=== PATIENT | female | born 1935 | race Caucasian/White ===

== ENCOUNTER 2016-08-29 11:06 | Day surgery (SDC) | payer MEDICARE ==
[2016-08-29] VITALS (9 sets, daily range): BP systolic 104–149; BP diastolic 56–80; PULSE 59–69; RESP 15–19; O2SAT 93–98
[~2016-08-29] VITALS: Ht 165.1 cm; Wt 69.8 kg
--- NOTE | 2016-08-29 06:41 | PCM.HPANE ---
Patient Data Surgeon Admitting Provider: Attending Provider:Emani Newman MD Primary Care Physician:Yoel Pabon MD Other Provider:[facility] Reason for Visit Bladder Tumor Ht/WT & BMI Height (Feet): 5 Height (Inches): 5 Weight (Kilograms): 25.96 Body Mass Index 9.00 Allergies Uncoded Allergies: CT CONTRAST (Allergy, Unknown, headache, nausea, anxiety, 08/26/16) pt tolerates topical iodines, shellfish with no reactions Past Anesthesia History Anesthesia History: Denies:: Abnormal Airway, Anesthesia Reactions (nausea after sedation- both times (colonoscopy, breast bx)), Difficult Intubation, Fam Anesthesia Reaction Diabetes History Hx Diabetes?: No MRSA MRSA: No Medications Hypertension Medication: Yes Home Meds Incl Beta Elizabeth: No Reported Medications Multivitamin (Multi Vitamin Daily)1 Each Tablet1 Each PO DAILY 30 Days Ref 0 08/29/16 Aspirin 81 Mg [id number] Mg PO DAILY Ref 0 08/29/16 [eye gtts] No Conflict CheckUnknown Dose DAILY for glaucoma 08/26/16 Simvastatin 10 Mg [id number] Mg PO HS Ref 0 08/26/16 Lisinopril 20 Mg [id number] Mg PO DAILY 30 Days Ref 0 08/26/16 History History of ENT Problems?: Yes HEENT History: Positive for:: Cataracts (bilateral ) Glaucoma Denies:: Abnormal Airway Difficult Intubation Dysphagia Hearing Problem Sinus Problem TMJ Denture Type: None Teeth Condition: Within Normal Limits Hx of Heart Problems?: No Cardiovascular History: Positive for:: Hypertension Denies:: AICD Abdominal Aortic Aneurism Atrial Fibrillation Cardiac Surgery Chest Pain Congestive Heart Failure Coronary Artery Disease Heart Murmur Irregular Heartbeat Pacemaker Peripheral Vascular Hx of Respiratory Problem?: Yes Respiratory History: Denies:: Asthma COPD Dyspnea Emphysema Oxygen Administration Pneumonia Tuberculosis Use of C-PAP Machine Use of Inhalers / NEBS Other Resp Pertinent History: right pulmonary nodule found on CT scan- being referred back to PCP for follow up Hx Neurologic Problems?: Yes Neurological History: Denies:: Alzheimer's Disease CVA Dementia Dizziness Headaches Multiple Sclerosis Parkinson's Disease (benign tremors- parkinsons ruled out-hands/legs tremors) Seizures TIA Hx of GI Problems?: No Hx of Problems?: Yes Genitourinary History: Denies:: Kidney Stones Urinary Tract Infection Other Pertinent History: bladder tumor current admission problem, 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 (hx of breast bx- benign ( right)) Denies:: Currently Skin History: Denies:: History Skin Disorders? Pressure Ulcers Hx Musculoskeletal Problems?: Yes Musculoskeletal History: Positive for:: Degenerative Joint Musculoskeletal Trauma (knee pain) Osteoarthritis Denies:: Back Injury Fibromyalgia Joint Replacement Myasthenia Gravis Systemic Lupus Hx of Psycho/Social Problems?: No Psycho Social History: Denies:: Anxiety (situational ) Hx Depression Hx Surgeries?: Yes (breast bx, judy cataracts) Hx Any Other Health Problems?: Yes Other History: Positive for:: Cancer (bladder) Denies:: Thyroid Disease History Blood Transfusions: Positive for:: Accept Blood Products? Denies:: Blood Transfusions Hx Diabetes: No Hx Alcohol Use: NoHx Substance Use: NoHave You Smoked inLast 12 mo: Yes ( quit June 2016) Stop/Bang S-Snoring: Do You Snore Loudly: No T-Tired: feel tired, fatigued: No O-Obsered: Observed not breath: No P-Blood Pressure: treated: Yes B- Body Mass Index > 35 kg/m2: No A- Age over 50: Yes N- Neck Large Circumference: No G- Gender Male: No OFELIA Total Score: 2 Risk Assessment Category Category 1A: Patient has history of documented sleep apnea, and HAS NOT received any narcotic, sedative or anesthesia administration during this stay. Category 1B: Patient has history of documented sleep apnea, and HAS received any narcotic , sedative or anesthesia administration during this stay Category 2: Patient has SUSPECTED Obstructive Sleep Apnea, and HAS received any narcotic , sedative or anesthesia administration during this stay. Category 3: Patient has SUSPECTED Obstructive Sleep Apnea and HAS NOT received narcotic, sedative or anesthesia administration during this stay. Category 4: Outpatient in Procedural Areas with known sleep apnea or who screen positive for High Risk via the STOP/BANG questionnaire. Exam Exam General Appearance: Alert, Oriented X3, Cooperative HEENT/AIRWAY: MP 2, Neck Movement (from), Mouth Opening (appeance of underbite , good opening) Lungs: Clear to Auscultation Heart: Exam Unremarkable Plan Impression Patient chart reviewed, patient interviewed and anesthestic plan with risks, benefits, and alternatives discussed, and informed consent obtained. ASA Physical Status: ASA2 Mod Systemic Disease Anesthetic Plan: GA Bene/Risks/Altern/Consents: Yes HP Complete Prior to Induction: Yes Edwin Uribe MD August 29, 2016 06:40
[~2016-08-29 11:06] MED LIST: ASPI-973 PO; LISI-567 PO; Lactated Ringer's 1,000 ML IV ONE; MULT-1018 PO; SIMV10TA4 PO; eye gtts
[2016-08-29] MEDS ORDERED: Dexamethasone 4 mg/mL Inj ONE (11:07)
[2016-08-29] MEDS ORDERED: Rocuronium 10 mg/mL 5 mL Inj ONE (11:07)
[2016-08-29] MEDS ORDERED: Ondansetron 2 mg/mL 2 mL Inj ONE (11:07)
[2016-08-29] MEDS ORDERED: EPHEDrine/NS 5 mg/mL 5 mL Syringe ONE (11:07)
[2016-08-29] MEDS ORDERED: fentaNYL-PF 50 mCg/mL 2 mL Inj ONE (11:07)
[2016-08-29] MEDS ORDERED: CeFAZolin Inj 2 gm / 50mL D5W IV ONE (11:12)
[2016-08-29] MEDS: CeFAZolin Inj 2 GM in IV Premix 1 EACH IV ONE ×2 (14:33→14:37)
[2016-08-29] MEDS ORDERED: Acetaminophen IV 1,000 MG in IV Premix 1 EACH IV ONE (14:35)
[2016-08-29] MEDS ORDERED: HYDROcodone-APAP 5-325 mg Tablet PO PRN (14:45)
[2016-08-29] MEDS ORDERED: Lactated Ringer's 1,000 ML IV SCH (15:11)
[2016-08-29] MEDS ORDERED: Lactated Ringer's 500 ML IV PRN (15:11)
[2016-08-29] MEDS ORDERED: Labetalol 5 mg/mL 4 mL Inj IV PRN (15:15)
[2016-08-29] MEDS ORDERED: Atropine 0.4 mg/mL Inj IVPUSH PRN (15:15)
[2016-08-29] MEDS ORDERED: Phenylephrine 10,000 mCg/mL Inj IVPUSH PRN (15:15)
[2016-08-29] MEDS ORDERED: Dexamethasone 4 mg/mL Inj IVPUSH PRN (15:15)
[2016-08-29] MEDS ORDERED: Ondansetron 2 mg/mL 2 mL Inj IVPUSH PRN (15:15)
[2016-08-29] MEDS ORDERED: HYDROmorphone 1 mg/mL Inj IVPUSH PRN (15:15)
[2016-08-29] MEDS ORDERED: hydrALAZINE 20 mg/mL Inj IVPUSH PRN (15:15)
[2016-08-29] MEDS ORDERED: EPHEDrine Sulfate 50 mg/mL Inj IVPUSH PRN (15:15)
[2016-08-29] MEDS ORDERED: fentaNYL-PF 50 mCg/mL 2 mL Inj IVPUSH PRN (15:15)
--- NOTE | 2016-08-29 15:31 | PCM.ANEP1 ---
Post Anesthesia Phase 1 PACU Phase 1 Assessment Vital Signs Vital Signs Date Time Temp Pulse Resp B/P Pulse Ox O2 Delivery O2 Flow Rate FiO2 08/29/16 15:20 36.6 68 17 121/69 97 Room Air 08/29/16 11:50 35.9 62 16 132/73 93 Room Air Anesthetic Administered: GA Level of Alertness: Awake, talking BARON's with Equal Strength: Yes Pain: No Nausea or Vomiting: No Lungs: Normal Air Movement Complications: No Follow up Care: No Edwin Uribe MD August 29, 2016 15:31
--- NOTE | 2016-08-29 22:50 | OP ---
[address] [address] OPERATIVE REPORT PATIENT: KARIN MANUEL : 1935 MR#: [id number] ADMIT: 08/29/2016 JOB ID: [id number] DATE OF SURGERY: 08/29/2016 PREOPERATIVE DIAGNOSIS(ES): Bladder tumor. POSTOPERATIVE DIAGNOSIS(ES): Bladder tumor. PROCEDURE PERFORMED: 1. Bimanual pelvic exam under anesthesia. 2. Transurethral resection of bladder tumor (2.5 cm). SURGEON: Emani Newman MD AGRI BUSINESS AGENT: None. FINDINGS: 1. 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 It was overall fairly large, but the stalk was quite small. 2. No palpable abnormal masses on bimanual pelvic exam. The bladder is freely mobile. ANESTHESIA: General. ESTIMATED BLOOD LOSS: Less than 5 mL. DRAINS: None. SPECIMEN: 1. Deep base of bladder tumor. 2. Bladder tumor. COMPLICATION: None. CONDITION: Stable. INDICATIONS FOR PROCEDURE: The patient is a 81-year-old woman with bladder tumor. DESCRIPTION OF PROCEDURE: After informed consent was obtained, the patient was taken to the operating room. A time-out was performed identifying correct patient, surgical site, and procedure. General anesthesia was smoothly induced. She was given intravenous antibiotics just prior to start of procedure. She was placed in lithotomy position and all pressure points were identified and appropriately padded. A bimanual pelvic exam was performed. The findings were aforementioned. Her genitals were then prepped and draped in usual sterile fashion. A 26-Prydeinig resectoscope was applied to the patient's urethra and into the bladder. The bladder was drained. Bladder was systematically inspected. Both ureteral orifices were in orthotopic position. They were somewhat small and round but otherwise normal. Systematic survey of the bladder revealed there was one bladder tumor lateral to the left ureteral orifice. It was fairly spherical and very frondular. The size of the stalk was very small. It was resected in piecemeal fashion. The base of the stalk was visualized and cold cup biopsy forceps were applied to it for deep base of bladder specimen tumor which was passed off the table separately from bladder tumor. The Ellik was used and the base was cauterized completely. Bladder tumor was sent off to pathologist as a separate specimen. The bladder was systematically inspected. There was no bleeding at the end of the procedure. All specimens had been removed. The patient was then reversed from general anesthesia and taken to PACU in stable condition. [facility]
== END 2016-08-29 23:59 | disposition home or self-care (01) ==
LOC: SAS 11:06
PROVIDERS: ATTEND Urology
DX: C67.9 Malignant neoplasm of bladder, unspecified (principal); N28.1 Cyst of kidney, acquired; I10 Essential (primary) hypertension; R91.1 Solitary pulmonary nodule; Z87.891 Personal history of nicotine dependence; Z79.82 Long term (current) use of aspirin
CPT/HCPCS: 52235; J0690; J1100; J2405; J3010; J7120